=== PATIENT | female | born 1935 | race African-American/Black ===

== ENCOUNTER 2017-04-05 19:27 | Observation (INO) | payer MEDICARE, OTHER ==
[2017-04-05 20:04] LABS: #Basophils 0.1 thou/uL (0.0-0.2); #Lymphocytes 2.9 thou/uL (1.20-3.40); #Monocytes 0.6 thou/uL (0.11-0.59); %Basophils 1.3 % (0.0-1.0); %Lymphocytes 38.5 % (21.0-51.0); %Monocytes 7.3 % (0.0-10.0); %Neutrophils 52.9 % (42.0-75.0); Mean Corpuscular HGB CONC 32.3 g/dL (32.0-36.0); Mean Corpuscular Hemoglobin 29.6 pg (27.0-31.0); Mean Corpuscular Volume 91.7 fl (81.0-99.0); Mean Platelet Volume 6.8 fL (7.4-10.4); Platelet Count 258 thou/uL (130-400); RBC Distribution Width 12.6 % (11.5-14.5); White Blood Cell (WBC) Count 7.6 thou/uL (4.8-10.8)
[2017-04-05 20:18] LABS: ALT (SGPT) 11 U/L (8-55); AST (SGOT) 14 U/L (5-34); Albumin 4.3 g/dL (3.4-4.8); Alkaline Phosphatase 82 U/L (40-150); Anion Gap 18 mmol/L (10-20); BUN (Urea Nitrogen) 18 mg/dL (9.8-20.1); Bilirubin, Total 0.3 mg/dL (0.2-1.2); Calc. Creatinine Clearance 0 mL/min (70-130); Calcium 10.1 mg/dL (7.8-10.44); Carbon Dioxide 25 mmol/L (23-31); Chloride 105 mmol/L (98-107); Estimated GFR-MDRD 69; Globulin 3.7 g/dL (2.4-3.5); Glucose 93 mg/dL (83-110); Potassium 3.9 mmol/L (3.5-5.1); Sodium 144 mmol/L (136-145)
[2017-04-05 20:25] LABS: CKMB 1.3 ng/mL (0-6.6); Troponin I 0.015 ng/mL (< 0.028)
[2017-04-05 20:26] LABS: Bilirubin Negative (Negative); Blood, Urine Negative (Negative); Clarity Clear (Clear); Glucose, Urine (Dipstick) 100 mg/dL (Negative); Leukocyte Negative (Negative); Nitrite Negative (Negative); Protein, Urine (Dipstick) Negative (Neg-Trace); Urobilinogen 0.2 mg/dL (0.2-1.0); pH, Urine 6.5 (5.0-9.0)
[2017-04-05 20:30] LABS: Specific Gravity, Urine 1.004 (1.002-1.036)
--- NOTE | 2017-04-05 20:30 | RAD ---
SEMIUPRIGHT PORTABLE CHEST ONE VIEW: 04/05/17 HISTORY: Chest pain following a fall. Monitor leads overlie the chest. Postop midline sternotomy. Heart size is within normal limits. Athe rosclerosis of the aorta. IMPRESSION: No acute intrathoracic disease. Stable from prior study. POS: [facility]
--- NOTE | 2017-04-05 21:09 | CT ---
BRAIN CT WITHOUT IV CONTRAST 04/05/17 HISTORY: 81-year-old female with fall in her bedroom, hitting head. Marked atrophy and chronic white matter ischemic change. No focal mass or midline shift. No intra or extra-axial hemorrhage. The sinuses and mastoids are clear. Stable from prior study, 01/15/14. IMPRESSION: Stable atrophy and chronic white matter ischemic changes without mass or bleed. POS: [facility]
--- NOTE | 2017-04-05 21:22 | CT ---
ABDOMEN AND PELVIS CT NONCONTRAST: CT LUMBAR SPINE NONCONTRAST 04/05/17 INDICATION: Pain, fall. FINDINGS: There is extensive fecal material throughout the colon which indicates prominent degree of constipat ion. There is moderate distention of the unopacified urinary bladder. No obvious retroperitoneal hem atoma. There is diffuse vascular disease. Solid abdominal viscera, bowel, lymph nodes and vasculatur e are limited in assessment without the presence of IV or enteric contrast. There is punctate radiop aque density at the pleural lining of the posterior left lung base producing streak artifact. CT imaging of the lumbar spine reveals a mild superior end plate height loss of L4, age indeterminat e. Correlate clinically. There is multilevel degenerative change. IMPRESSION: 1. Extensive constipation. 2. No obvious fracture. No hematoma. 3. Mild superior end plate height loss of L4. Correlate clinically to exclude pain related to r ecent compression fracture. POS: [facility]
[2017-04-05] MEDS ORDERED: Acetaminophen 325 MG TAB PO PRN (22:49)
[2017-04-05] MEDS ORDERED: Ondansetron HCl/PF 4 MG/2 ML Vial IVP PRN (22:49)
[2017-04-05] MEDS ORDERED: Ondansetron ODT 4 MG TAB SL PRN (22:49)
[2017-04-06 03:07] LABS: CKMB 1.1 ng/mL (0-6.6); Troponin I 0.012 ng/mL (< 0.028)
[2017-04-06 09:04] LABS: CKMB 1.1 ng/mL (0-6.6); Troponin I 0.019 ng/mL (< 0.028)
[2017-04-06] MEDS ORDERED: Milk Of Magnesia 30 ML UDCUP PO PRN (20:23)
[2017-04-06] MEDS ORDERED: Fleet Enema 133 ML BOT PR PRN (20:23)
[2017-04-06] MEDS ORDERED: DIFLUPREDNATE EA EYE SCH (21:00)
[2017-04-06] MEDS: Docusate 100 MG CAP PO SCH (21:41)
--- NOTE | 2017-04-07 06:42 | HP ---
DATE OF ADMISSION: 04/05/2017 HISTORY OF PRESENT ILLNESS: Ms. Rueda is a very pleasant 81-year-old black female patient of Dr. Ariadne Rowan that presented to the ER after falling several times. ER thought she may be having a syn copal episode, but she did not give a good history for that. She was extremely weak and apparently her nephew said that she is having more more falls over the past several days. She states she uses a walker, but feels lightheaded. None of the falls were witnessed. The patient states she has some right rib pain since she fell. That was x-rayed and no fractures were noted. The patient lives alone and is unable to go home by herself and so the patient was admitted to [facility] and to get touch with her family and they can make arrangements to bring her either to her ho use or to a nursing care facility. In the ER, it was noted that the patient did have a CT scan which showed significant constipation. The patient still not had a bowel movement and we will most likely end up giving her some type of en alton. PAST MEDICAL HISTORY: Reveals the patient has had: 1. CVA/stroke. 2. Diabetes type 2. 3. Hypertension. 4. Hyperlipidemia. 5. Cancer of the bladder with negative cystoscope. PAST SURGICAL HISTORY: 1. Total abdominal hysterectomy. 2. TURBT. 3. CABG. FAMILY HISTORY: Reveals patient's father , unknown etiology. Patient's mother with cancer . The Patient has healthy siblings. SOCIAL HISTORY: Patient does smoke, does not use alcohol or drugs. The patient is retired and wido wed. She has no children. She lives alone. She has no pets. PRESENT MEDICATIONS: Reveal patient is presently on the followin. Aspirin 81 mg once a day. 2. Lisinopril 20 mg once daily. 3. Diltiazem 120 mg twice daily 4. Hydrochlorothiazide 25 mg once a day. 5. Metformin 1000 mg twice a day with food. 6. Glipizide ER 10 mg twice a day. 7. Nitrostat p.r.n. chest pain. 8. MiraLax daily. 9. Aspirin 81 mg daily. 10. Multiple eyedrops for her glaucoma. REVIEW OF SYSTEMS: The patient denies fever, chills, sweats, headache. She just complains of weakn ess and fatigue and falling down spells. She states that the lord will provide for her. The patient denies any significant visual changes or hearing changes. The patient denies cough, col d, congestion, wheezing, or shortness of breath. CARDIOVASCULAR: The patient denies any chest pain, dyspnea on exertion, claudication or edema. GASTROINTESTINAL: Patient denies nausea, vomiting, diarrhea, constipation, although her CT scan cervantes s show she has constipation. She does not remember when she had her last large bowel movement. GENITOURINARY: The patient denies any urgency, frequency, dysuria, hematuria or nocturia. MUSCULOSKELETAL: Patient states she just has weakness and she just falls down. She has no signific ant complaints of arthritic type pains. NEUROLOGIC: The patient is oriented to person, place, but not time. PHYSICAL EXAMINATION: GENERAL: This is a well-developed, thin black female in no apparent distress at this time. HEENT: Reveals normocephalic, nontraumatic cranium. Pupils are equally round and reactive to light . Extraocular movements are intact. Nose and throat are dry. NECK: Supple, without masses, nodes or bruits. CHEST: Clear with breath sounds are very distant. No rales or rhonchi, no wheezes or cough is hear d. Patient denies any chest pain at this time. HEART: Reveals a regular rate and rhythm with 2/6 systolic ejection murmur noted. ABDOMEN: Soft, nontender, without organomegaly. No rebound or guarding is noted. GENITOURINARY: Deferred. EXTREMITIES: Reveal no clubbing, cyanosis or edema. ASSESSMENT: 1. Syncopal-like episodes. 2. Generalized weakness. 3. Multiple falls. 4. Chronic kidney disease stage 3. 5. Type 2 diabetes. 6. Hypertension. 7. Open angle glaucoma in the right eye. 8. Gastroesophageal reflux. 9. Coronary artery disease status post coronary artery bypass graft. 10. Hyperlipidemia. 11. Constipation. PLAN: 1. The patient was admitted to the hospital for observation. She was well hydrated over the evenin g and during the day. 2. The next order of business is to disimpact her and most likely we will discharge her tomorrow mo rning.
[2017-04-07] MEDS ORDERED: glipiZIDE 5 MG TAB PO SCH (07:30)
[2017-04-07] MEDS ORDERED: Hydrochlorothiazide 25 MG TAB PO SCH (09:00)
[2017-04-07] MEDS ORDERED: Atorvastatin Calcium 40 MG TAB PO SCH (09:00)
[2017-04-07] MEDS ORDERED: Lisinopril 20 MG TAB PO SCH (09:00)
[2017-04-07] MEDS ORDERED: Aspirin 81 mg Enteric Coated Tablet PO SCH (09:00)
[2017-04-07 10:17] VITALS: BP 155/72
[2017-04-07] MEDS: Docusate 100 MG CAP PO SCH (10:17)
--- NOTE | 2017-04-07 13:31 | DIS ---
DATE OF ADMISSION: 04/05/2017 DATE OF DISCHARGE: 04/07/2017 HOSPITAL COURSE: Ms. Rueda is a very pleasant 81-year-old black female, patient of Dr. Jin Rowan . She was at home and has had been falling several times and was brought to the emergency room for possible syncopal episodes. Patient is unable to give a good history, because of her early dementia . She is extremely weak. The ER physician did multiple tests and did not find any significant prob lems except for constipation. He admitted her for possible syncopal episode. The patient was evalu ated and followed on telemetry and actually did very well. She has not been eating very well. She does live by herself, mainly at night and has some caregivers stay with her a few hours during the d aytime. The patient has no complaints. I did talk with the patient's nephew yesterday since she has no children. He states they have been concerned with her most recently getting weaker and weaker and they will most likely have to place h er in some type of assisted living or some type of around the clock care. The patient was found to be significantly constipated and was given MiraLax, milk of magnesia, and D ulcolax and last night and has had very effective evacuation. She states she has no complaints this morning and is feeling much better. She wishes to go home back with her family. PHYSICAL EXAMINATION: VITAL SIGNS: This morning revealed blood pressure 156/73, pulse 62 to 73, respirations 17 to 20, O2 sat 99% on room air, temperature 99.8. GENERAL: This is a well-developed, well-nourished, thin white female, in no apparent distress at th is time. HEENT: Reveals normocephalic, nontraumatic cranium. Pupils equal, round, and reactive. Extraocula r movements are intact. Nose and throat are still slightly dry, but clear. NECK: Supple, without masses, nodes, or bruits. CHEST: Clear to auscultation, but distant breath sounds are noted. No rales, rhonchi, or wheezes a re heard. HEART: Reveals regular rate and rhythm. The patient continues with a 2/6 systolic ejection murmur. ABDOMEN: Soft, nontender, without organomegaly. A significant amount of stool was evacuated with t he patient's hospital stay. GENITOURINARY: Deferred. EXTREMITIES: Reveals no clubbing, cyanosis, or edema. ASSESSMENT: 1. Syncopal like episodes. 2. Generalized weakness. 3. Multiple falls. 4. Chronic kidney disease, stage 3. 5. Type 2 diabetes. 6. Hypertension. 7. Open-angle glaucoma in the right eye. 8. Gastroesophageal reflux. 9. Coronary artery disease, status post coronary artery bypass. 10. Onset of dementia. 11. Hyperlipidemia. 12. Constipation. PLAN: The patient is to be discharged today when the family can pick her up. I did talk with Mr. Gabby mejia yesterday who is the nephew and he states they have been talking about family plans and they usman l pick her up sometimes in this morning or early this afternoon and make arrangements for her contin ued care.
[2017-04-07 15:45] VITALS: TEMP 97.1
== END 2017-04-07 13:00 | disposition home or self-care (01) ==
LOC: NAV ERS 19:27 → NAV ACUTE 22:29
PROVIDERS: ADMIT Family Medicine; ATTEND Family Medicine
DX: R55 Syncope and collapse (principal); R53.1 Weakness; K59.00 Constipation, unspecified; E11.22 Type 2 diabetes mellitus with diabetic chronic kidney disease; I12.9 Hypertensive chronic kidney disease with stage 1 through stage 4 chronic kidney disease, or unspecified chronic kidney disease; N18.3 Chronic kidney disease, stage 3 (moderate); H40.10X0 Unspecified open-angle glaucoma, stage unspecified; K21.9 Gastro-esophageal reflux disease without esophagitis; E78.5 Hyperlipidemia, unspecified; I25.10 Atherosclerotic heart disease of native coronary artery without angina pectoris; F17.200 Nicotine dependence, unspecified, uncomplicated; F03.90 Unspecified dementia, unspecified severity, without behavioral disturbance, psychotic disturbance, mood disturbance, and anxiety; Z88.0 Allergy status to penicillin; Z88.8 Allergy status to other drugs, medicaments and biological substances; Z79.82 Long term (current) use of aspirin; Z79.84 Long term (current) use of oral hypoglycemic drugs; Z79.899 Other long term (current) drug therapy; Z95.1 Presence of aortocoronary bypass graft; Z90.710 Acquired absence of both cervix and uterus; Z98.890 Other specified postprocedural states; Z86.73 Personal history of transient ischemic attack (TIA), and cerebral infarction without residual deficits; Z80.9 Family history of malignant neoplasm, unspecified
CPT/HCPCS: 36416; 70450; 71010; 74176; 80053; 81003; 82553; 84484; 85025; 87086; 93005; 94760; A4216; A4353; G0378